=== PATIENT | female | born 2000 | race African-American/Black ===

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

== ENCOUNTER 2023-10-08 07:30 | Day surgery (SDC) | payer OTHER ==
[~2023-10-08] VITALS: Ht 149.9 cm; Wt 48.0 kg
[~2023-10-08 07:30] MED LIST: Ciprofloxacin 0.3% Opth Soln 2.5 ML BTL ONE; EPINEPhrine HCl 1 MG / ML 30ML Vial ONE; Lactated Ringer's 1,000 ML IV ONE; Triamcinolone Inj Susp 40 MG / ML 1ML Vial ONE
[2023-10-08] MEDS ORDERED: CLOMIPRAMINE HC50 M1 PO (08:02)
[2023-10-08] MEDS ORDERED: Midazolam HCl 1MG / ML 2ML Vial ONE (08:11)
[2023-10-08] MEDS ORDERED: Lactated Ringer's 1,000 ML IV ONE ×2 (08:14→09:38)
[2023-10-08] MEDS ORDERED: propofoL 20 ML IV ONE (08:21)
[2023-10-08] MEDS ORDERED: FentaNYL Citrate 50 MCG/ML 2 ML Injection ONE (08:21)
[2023-10-08] MEDS ORDERED: Dexamethasone Sod Phos 10 MG/ML 1ML VIAL ONE (09:22)
[2023-10-08] MEDS ORDERED: Lidocaine 1%-Epineph 1:200000 30 ML SDV XX ONE (09:34)
--- NOTE | 2023-10-08 09:37 | NUR ---
10/08/23 0937 Ale Rico USED TO SOAK HERMANN ON THE FIELD USED DURING CASE.
[2023-10-08] MEDS ORDERED: Ondansetron HCl 2 MG / ML 2ML Vial ONE (09:55)
[2023-10-08] MEDS ORDERED: Ciprofloxacin 0.3% Opth Soln 2.5 ML BTL ONE (10:42)
[2023-10-08 10:49] VITALS: BP 131/95
[2023-10-08] MEDS ORDERED: OxyCODONE HCL 5 MG TAB ONE (10:56)
--- NOTE | 2023-10-08 11:00 | NUR ---
10/08/23 1100 Ashley Chau PT STATES SHE IS HAVING NO PAIN OR NAUSEA. PARENTS ARE AT BEDSIDE AND ASSISTING PT WITH EATING SOME APPLESAUCE. MOM WOULD LIKE FOR PT TO HAVE A PAIN PILL BEFORE SHE LEAVES BECAUSE PT DOES NOT LIKE TO TAKE PILLS. ENCOURAGED PT TO EAT SO THAT SHE CAN TAKE THE PILL AND GO HOME TO REST. .
== END 2023-10-08 11:30 | disposition home or self-care (01) ==
LOC: ORSCSDS 07:30
PROVIDERS: Otolaryngology
PROC: 09U Ear, Nose, Sinus, Supplement (ICD-10-PCS; principal; 2023-10-08 08:45)
DX: H72.02 Central perforation of tympanic membrane, left ear (principal); H90.12 Conductive hearing loss, unilateral, left ear, with unrestricted hearing on the contralateral side; F43.10 Post-traumatic stress disorder, unspecified; R62.50 Unspecified lack of expected normal physiological development in childhood; Z79.899 Other long term (current) drug therapy
CPT/HCPCS: A9270; C1763; J0171; J1100; J2250; J2405; J2704; J3010; J3301; J7120

== ENCOUNTER → 2024-09-02 | Outpatient (CLI) | payer OTHER ==
[~2024-09-02] MED LIST changes: +CLOMIPRAMINE HC50 M1 PO; -Ciprofloxacin 0.3% Opth Soln 2.5 ML BTL ONE; -EPINEPhrine HCl 1 MG / ML 30ML Vial ONE; -Lactated Ringer's 1,000 ML IV ONE; -Triamcinolone Inj Susp 40 MG / ML 1ML Vial ONE
== END | disposition home or self-care (01) ==
LOC: LAB SHORT 10:34 → PLD 10:34 → LAB 10:34
DX: D22.5 Melanocytic nevi of trunk (principal)
CPT/HCPCS: 88305